=== PATIENT | female | born 1950 | race Caucasian/White ===

== ENCOUNTER 2017-02-07 09:58 | Day surgery (SDC) | payer BC, MEDICARE ==
[~2017-02-07] VITALS: Ht 160 cm; Wt 87.6 kg
[~2017-02-07 09:58] MED LIST: ASPI81TA84 PO; BUME1TAB16 PO; LEVO125T71 PO; LIDOCAINE 1% (10mg/ml) 2ml SDV INJ ONE; LR 1,000 ML IV SCH; METO25TA6 PO; MULT1CAP47 PO; OMEP20CA4 PO; ROSU20TA23 PO; SUCR1TAB20 PO; THYR15TA PO; TICA60TA PO
[2017-02-07 10:24] VITALS: BP 159/77; PULSE 68; RESP 16; TEMP 98.3; O2SAT 96; Ht 160 cm; Wt 87.6 kg
--- NOTE | 2017-02-07 11:41 | ANESPREOP ---
Anesthesia Record Date and Time DATE: 02/07/17 TIME: 11:35 Proposed Surgical Procedure EGD,COLONOSCOPY Allergies: Coded Allergies: Sulfa (Sulfonamide Antibiotics) (Verified Allergy, Unknown, 02/07/17) codeine (Verified Allergy, Unknown, 02/07/17) hydrocodone bit (Verified Allergy, Unknown, 02/07/17) Ht/Wt/BMI Height: 5 ' 3.00 " Weight: 87.600 kg BMI: 34.2 kg/m2 Vital Signs Date Time Temp Pulse Resp B/P Pulse Ox O2 Delivery O2 Flow Rate FiO2 02/07/17 10:24 98.3 68 16 159/77 96 Room Air Medications Inpatient Medications Current Medications Medications (Trade) Dose Ordered Sig/Ana Start Time Stop Time Status Last Admin Dose Admin Lactated Ringer's (Lactated Ringers) 1,000 ml @ 50 mls/hr Q20H 02/07/17 07:00 02/07/17 10:47 50 MLS/HR Aspirin (Nathan) 81 Mg Tablet.dr, 81 MG PO DAILY, (Reported) Last Taken: on 01/28/17 07 Bumetanide (Bumex) 1 Mg Tablet, 1 MG PO BID, ( Reported) Last Taken: on 02/06/17 07 Levothyroxine Sodium (Levothyroxine Sodium) 125 Mcg Tablet, 125 MCG PO DAILY, (Reported) Last Taken: on 02/07/17 07 Metoprolol Tartrate (Metoprolol Tartrate) 25 Mg Tablet, 25 MG PO BIDWM, (Reported) Take 1 tab, by mouth, two time a day with meals. Last Taken: on 02/07/17 0730 Multivitamins W-Minerals (Multivitamin) 1 Cap Capsule, 1 CAP PO DAILY, (Reported) Last Taken: on 02/06/17 07 Omeprazole (Prilosec) 20 Mg Capsule.dr, 20 MG PO ACB, (Reported) Take 1 capsule, by mouth, one time a day before breakfast. Last Taken: on 02/06/17 0700 Rosuvastatin Calcium (Rosuvastatin Calcium) 20 Mg Tablet, 1 TAB PO HS, (Reported) Last Taken: on 02/06/17 07 Sucralfate (Carafate) 1 Gm Tablet, 1 G PO ACHS, (Reported) Take 1 tablet, by mouth, 4 times a day (Before EACH meal and at BEDTIME). Last Taken: on 02/06/17 2200 Thyroid,Pork ([place] Thyroid) 15 Mg Tablet, 1 TAB PO DAILY, (Reported) Last Taken: on 02/07/17 0700 Ticagrelor (Brilinta) 60 Mg Tablet, 60 MG PO BID, (Reported) Last Taken: on 01/28/17 Currently on Beta Teri: Yes Beta Teri Last Taken: METOPROLOL 25MG 02/07 AT 0730 Medical/Surgical History Anesthesia PMH: Reports: *Hypertension, Arthritis (HX OF ), Obesity, Reflux, Thyroid Disease (HYPOTHYROID), Denies: *Angina, *Diabetes, *WA, Anesthesia Reactions (NO AIRWAY ISSUES HARD TO WAKE UP,N&V), Asthma, Blood Transfusion Reac , CHF, COPD, CVA/Stroke/TIA, Cancer, Deep Vein Thrombosis, Glaucoma, Hepatitis, Hiatal Hernia (HX OF UMBILICAL HERNIA), Malignant Hyperthermia, Pneumonia, Renal Disease, Rheumatic Fever, Seizures, Sleep Apnea, Tuberculosis Smoking Status: Never smoker Has pt. smoked today?: No Use Chewing Tobacco?: No Second Hand Exposure: No Substance Use Type: does not use Alcohol Intake: rarely Last Drink: unknown HX of Last Menstrual Period: AGE 31 Past Surgical History Orthopedic Surgeries: - THUMB JOINT FUSED; MISAEL CTR; REPAIRED TENDONS LT ELBOW; MISAEL KNEE SCOPES Abdominal Surgeries: - LAP/ ADHESIONS; GREG; APPY; UMB. HERNIA CHILD Genitourinary Surgeries: Cardiac Surgeries: Endocrine Surgeries: - THYROIDECTOMY Reproductive Surgeries: - TUBAL,HYST Neurological Surgeries: Ear Surgeries: Nose Surgeries: Throat Surgeries: Other Surgeries: Yes - DENTAL Anesthesia Adverse Reactions: FOUND nausea and vomiting Family Hx of Anesthesia Advers: none Hx of Motion Sickness: No Pertinent Findings EKG Rhythm: Sinus Rhythm Physical Exam Respiratory: Bilat breath sounds equal, Lungs clear Cardiovascular: FOUND Regular rate, rhythm, FOUND No murmur Airway Assessment Mallampati Score: II TMD: 3 Fingerbreadths Neck Extension: Fair Teeth: Upper Dentures, Lower Dentures Overall Assessment: No Airway Concerns ASA: 2 Plan Anesthesia Plan: TIVA Discussion Discussed risks/options/alternatives of anesthesia and questions answered. Patient consents. Nursing pain assessment noted. Present: Spouse Attestation Statement Prior to the delivery of any anesthetic medication, I examined the patient, developed the plan, obtained the patient's consent and discussed the risk and benefits of the procedure with the patient/guardian. CHARLEE PHELAN CRNA Feb 07, 2017 11:41
[2017-02-07] MEDS ORDERED: LIDOCAINE VISCOUS 2% Oral Soln 15ml UD ONE (12:25)
[2017-02-07] MEDS ORDERED: PROPOFOL 500mg 50 ML IV ONE (13:02)
[2017-02-07 13:16] VITALS: BP 136/63; PULSE 62; RESP 16; TEMP 97.1; O2SAT 98
--- NOTE | 2017-02-07 13:22 | GSPOSTPROC ---
Immediate Operative Note DATE: 02/07/17 TIME: 13:21 Postop Diagnosis: colon polyps Surgical Procedure: EGD, C-scope w/Polypectomy Surgeon: Moe ASA: 2 GEOVANNI GONZALEZ MD Feb 07, 2017 13:22
[2017-02-07 13:31] VITALS: BP 144/66; PULSE 59; RESP 16; O2SAT 97
--- NOTE | 2017-02-07 13:40 | ANESPO ---
Post-Op Note Date 02/07/17 Time: 13:40 Status Pt Participated in Evaluation: Pt participated in person Vital Signs Date Time Temp Pulse Resp B/P Pulse Ox O2 Delivery O2 Flow Rate FiO2 02/07/17 13:16 97.1 62 16 136/63 98 Mask 6.00 Respiratory Function: Airway patent, Regular respirations Cardiovascular Function: Regular pulse Mental Status: Alert/oriented Pain Level Intensity: 0 Hydration: Taking po fluids Complications during Recovery None apparent Follow-Up Instructions Instructions Per Surgeon JEAN CLAUDE ANTHONY CRNA Feb 07, 2017 13:40
[2017-02-07 13:46] VITALS: BP 179/72; PULSE 60; RESP 14; TEMP 97.3; O2SAT 100
[2017-02-07 14:01] VITALS: BP 159/70; PULSE 61; RESP 16; O2SAT 100
[2017-02-07 14:16] VITALS: BP 141/60; PULSE 59; RESP 16; O2SAT 100
--- NOTE | 2017-02-08 08:45 | OPNOTEF ---
DATE OF OPERATION 02/07/2017 PREOPERATIVE DIAGNOSES 1. Gastroesophageal reflux disease. 2. Rectal bleeding. 3. Chronic constipation with worsening constipation of several months' duration. 4. Internal and external hemorrhoids. 5. Irritable bowel syndrome. 6. Recent anticoagulation with Brilinta. POSTOPERATIVE DIAGNOSES 1. Gastroesophageal reflux disease. 2. Rectal bleeding. 3. Chronic constipation with worsening constipation of several months' duration. 4. Internal and external hemorrhoids. 5. Irritable bowel syndrome. 6. Recent anticoagulation with Brilinta. 7. Colon polyps. OPERATION Esophagogastroduodenoscopy and total colonoscopy with polypectomy. SURGEON Dr. Rosa ANESTHESIA TINV ASA CLASS 2 FINDINGS The findings at the upper gastrointestinal tract were normal at esophagogastroduodenoscopy. The esophagus, stomach and duodenum looked normal. No source for bleeding which would lead to rectal bleeding was found at esophagogastroduodenoscopy. The esophagus appeared normal. There was no distal esophagitis. There were no he esophageal ulcerations or erosions. There were no Valderrama's esophagus changes at the esophagus. There were no colon or rectal tumors. The patient did have three colon polyps. The patient had a small polyp located 65 cm proximal to the anal verge. The patient had a larger polyp located at the ascending colon. The patient had another smaller polyp at the ascending colon. There were no rectal polyps. There was no colonic diverticulosis. There was no melanosis coli. There were no colonic angiodysplasia lesions. There was no evidence of any inflammatory bowel disease. The patient does have some internal and external hemorrhoids. There was no colonic diverticulosis. No bright red blood or old blood was seen anywhere at the colon or rectum at the time of the procedure today. It was thought at the conclusion of the operation today that the hematochezia experienced by the patient is due to bleeding from internal hemorrhoids. No cause for the worsening constipation was found today. There were no narrow areas or strictures anywhere at the colon. The patient did not have any anal fissures. DESCRIPTION OF OPERATION The patient was brought to the endoscopy room. The patient was placed on a cart in the endoscopy room. The patient was placed in left lateral recumbent position on the cart. The patient was premedicated with intravenous sedation medication administered by the nurse senior solutions workflow consultant. The Olympus upper GI endoscope was used. The upper GI endoscope was introduced into the esophagus. The upper GI endoscope was advanced down through the esophagus and stomach and into the duodenum. The upper GI endoscope was then withdrawn from the duodenum back into stomach. The upper GI endoscope was retroflexed and the gastroesophageal junction was viewed from below. The upper GI endoscope was straightened out. The stomach was examined further. The upper GI endoscope was then withdrawn out through the stomach and esophagus and removed from the patient. The patient was kept in left lateral recumbent position on the cart in the endoscopy room. The patient continued to receive intravenous sedation medication administered by the nurse senior solutions workflow consultant. Total colonoscopy was performed. The Olympus colonoscope was used. The colonoscope was introduced into the rectum. The colonoscope was advanced up through the rectum and colon. As the colonoscope was being introduced, a polyp was identified at a level 65 cm proximal to the anal verge. This polyp was removed with two bites of the cold endoscopic biopsy forceps and submitted as a specimen for study by a pathologist. The colonoscope was then advanced the remainder of the way up through the colon all the way up to the cecum. The appendiceal orifice was clearly identified. The ileocecal valve was clearly identified. The colonoscope was withdrawn back through the colon. The patient did have a couple of ascending colon polyps. One these polyps was removed with the electrocautery snare device and retrieved and submitted as a specimen for study by a pathologist. The other of ascending colon polyp was removed with the cold endoscopic biopsy forceps and submitted as a specimen for study by the pathologist. The colonoscope was then withdrawn the remainder of the way out through the colon and rectum and removed from the patient. Digital rectal examination was performed. Findings throughout the procedure were as described above. The patient did continue to receive intravenous sedation medication administered by the nurse senior solutions workflow consultant throughout the operation. The patient did tolerate the operation well. BHAVANI
== END 2017-02-07 14:30 | disposition home or self-care (01) ==
LOC: SCU 09:58
PROVIDERS: ATTEND Surgery
DX: K21.9 Gastro-esophageal reflux disease without esophagitis (principal); D12.2 Benign neoplasm of ascending colon; D12.6 Benign neoplasm of colon, unspecified; K62.5 Hemorrhage of anus and rectum; K58.1 Irritable bowel syndrome with constipation; K64.8 Other hemorrhoids; K64.4 Residual hemorrhoidal skin tags; Z83.71 Family history of colonic polyps; E03.9 Hypothyroidism, unspecified; I25.10 Atherosclerotic heart disease of native coronary artery without angina pectoris; I34.0 Nonrheumatic mitral (valve) insufficiency; E78.5 Hyperlipidemia, unspecified; F41.9 Anxiety disorder, unspecified; F32.9 Major depressive disorder, single episode, unspecified; Z79.01 Long term (current) use of anticoagulants; Z79.82 Long term (current) use of aspirin; Z79.899 Other long term (current) drug therapy
CPT/HCPCS: 43235; 45380; 45385; J2704; J7120

== ENCOUNTER 2017-05-11 08:12 | Inpatient (IN) ==
[~2017-05-11 08:12] MED LIST changes: +ACETAMINOPHEN 500 MG TABLET PO ONE; -ASPI81TA84 PO; -BUME1TAB16 PO; +CEFAZOLIN 1 G INJECTION IVP ONE; +DEXAMETHASONE 4 MG/ML INJECTION IVP ONE; +EPINEPHrine 0.25 MG, BUPIVACAINE 0.25% PF 30 ML, MORPHINE SULFATE 15 MG, KETOROLAC INJ ... OPSITE ONE; +FAMOTIDINE PREMIX 20 MG/50 ML BAG IV ONE; -LEVO125T71 PO; +LIDOCAINE 1% (10mg/ml) 10mL MDV SQ ONE; -LIDOCAINE 1% (10mg/ml) 2ml SDV INJ ONE; -LR 1,000 ML IV SCH; +MELOXICAM 15 MG TABLET PO ONE; -METO25TA6 PO; +METOCLOPRAMIDE 10mg/2ml INJECTION IVP ONE; -MULT1CAP47 PO; +NOZIN NASAL SWAB NAS ONE; -OMEP20CA4 PO; +ONDANSETRON 4 MG/2 ML INJECTION IVP ONE; -ROSU20TA23 PO; +SALINE FLUSH 10ml SYRINGE IVF PRN; -SUCR1TAB20 PO; -THYR15TA PO; -TICA60TA PO
[2017-05-11] MEDS: LR 1,000 ML IV SCH ×2 (08:57→13:25)
[2017-05-11] MEDS ORDERED: VANCOMYCIN 1,000 MG INJECTION ONE (09:52)
--- NOTE | 2017-05-11 10:00 | Anesthesia Preoperative Report ---
Anesthesia Preoperative Record - Date and Time Date: 05/11/17 Preoperative Diagnosis: Total knee arthroplasty M17.12 Proposed Procedure: Left Total Knee replacement NPO Since Date: 05/11/17 NPO Since Time: 00:00 Allergies/Adverse Reactions: Allergies Allergy/AdvReac Type Severity Reaction Status Date / Time codeine AdvReac Unknown N/V Verified 05/11/17 08:40 Sulfa (Sulfonamide AdvReac Unknown N/V Verified 05/11/17 08:40 Antibiotics) hydrocodone bit AdvReac Unknown N/V Uncoded 05/11/17 08:40 - Vital Signs Vital Signs: Temp Pulse Resp BP Pulse Ox 98.4 F 62 15 159/75 H 96 05/11/17 08:27 05/11/17 08:55 05/11/17 08:27 05/11/17 08:27 05/11/17 08:27 Height and Weight: Height 5 ft 3 in Weight 92.6 kg Body Mass Index 36.1 - Medications Inpatient Medications: Current Medications Lactated Ringer's (Lactated Ringers) 1,000 mls @ 50 mls/hr IV .Q20H SWAPNIL Last Admin: 05/11/17 08:57 Dose: 50 mls/hr Miscellaneous Medication (Tranexamic 1gm/Ns 100 Irr Mix) 100 ml IR O ONE Stop: 05/11/17 15:02 Sodium Chloride (Iv Flush) 10 - 80 ml IVF PRN PRN PRN Reason: Flushing Home Medications: Home Medications Medication Instructions Recorded Confirmed Type Bumetanide 1 mg PO BID #0 05/19/11 05/11/17 History Levothyroxine Sodium [Synthroid] 125 mcg PO DAILY #0 05/19/11 05/11/17 History Sucralfate [Carafate] 1 g PO ACHS #0 tab 08/24/15 05/11/17 History Metoprolol Tartrate 25 mg PO BID #0 tab 10/27/15 05/11/17 History Rosuvastatin Calcium 1 tab PO HS #30 02/06/17 05/11/17 History Thyroid,Pork [[place] Thyroid] 1 tab PO DAILY #30 02/06/17 05/11/17 History Ticagrelor [Brilinta] 60 mg PO BID #0 tab 02/06/17 05/10/17 History Aspirin [Lo-Dose Aspirin EC] 1 tab PO HS 05/03/17 05/10/17 History Multivit-Min/FA/Lycopen/Lutein 1 each PO DAILY 05/03/17 05/11/17 History [Centrum Silver Tablet] Lisinopril [Prinivil] 5 mg PO DAILY 05/05/17 05/11/17 History Omeprazole [Prilosec] 1 cap PO DAILY 05/11/17 05/11/17 History Is Patient on Beta Teri?: Yes - Medical History Respiratory: DENIES: Asthma, Bronchitis, Chronic Obstructive Pulmonary Disease (COPD), Dyspnea, Orthopnea, Pulmonary Embolism, Pneumonia, Upper Respiratory Infection, Pulmonary Edema, Sleep Apnea, Tuberculosis, Other Cardiovascular: Reports: Myocardial Infarction (stentx1) Gastrointestional: Reports: Gastroesophageal Reflux Disease (well controlled with meds.) Neuro/Musculoskeletal: Denies: HX.MS.OSAR, Back Problems, Cerebrovascular Accident, Depression, Headaches, Loss of Consciousness, Muscle Weakness, Neuromuscular Disorder, Paralysis, Paresthesia, Syncope, Seizures, Other Renal/Endocrine: Reports: Thyroid Disease (Total Thyroidectomy) Other History: Reports: Anesthesia Reactions (PONV) Anesthesia Reactions: nausea and vomiting - Surgical History HEENT Surgeries: Reports: Tonsillectomy Cardiac Surgeries/Treatments: Reports: Cardiac Catheterization (Stent x1-2015) Endocrine Surgery/Treatments: Reports: Thyroidectomy GI Surgery/Treatments: Reports: Appendectomy, Cholecystectomy, Hernia Repair ( Umbilical), Colonoscopy (polyp), EGD, Other (expl lap, release of adhesions) Musculoskeletal Surgery/Tx: Reports: Carpal Tunnel Release (bilateral), Knee Arthroscopy (Bilateral), Orthopedic Surgery (thumb joint;lt elbow tendon repair) , Other ([place] surg lt knee age 8) Reproductive Surgery/Treatment: Reports: Dilation and Curettage, Hysterectomy, Oophorectomy, Tubal Ligation, Salpingectomy Hx Family Anesthesia Reaction: No - Social History Smoking Status: Never smoker Substance Use Type: does not use - Pertinent Findings EKG Rhythm: Normal Sinus Rhythm - Physical Exam Respiratory Exam: Present: lungs clear, bilateral breath sounds equal Cardiovascular Exam: Present: regular rate and rhythm, no murmur - Airway Assessment Mallampati Score: II TMD: 3 Fingerbreadths Neck Extension: good Teeth: upper dentures, lower dentures - ASA ASA Score: 2 - Plan Anesthesia: General TIVA Regional/Trunk Block: Spinal - Discussion Discussion: Discussed risks/options/alternatives of anesthesia and questions answered. Patient consents. Nursing pain assessment noted. Present for Discussion: family member Attestation Statement: Prior to the delivery of any anesthetic medication, I examined the patient, developed the plan, obtained the patient's consent and discussed the risk and benefits of the procedure with the patient/guardian. - Additional Information Seen by Anesthesia: Yes
[2017-05-11] MEDS ORDERED: PROPOFOL 500 MG/50 ML VIAL IV ONE (10:50)
[2017-05-11] MEDS ORDERED: PROPOFOL 80 ML ONE (11:43)
[2017-05-11] MEDS ORDERED: VANCOMYCIN 1,000 MG INJECTION IAR ONE (11:53)
--- NOTE | 2017-05-11 12:07 | Operative Note ---
- Procedure Date of Admission: 05/11/17 Side: left Preoperative Diagnosis: knee primary DJD Postoperative Diagnosis: Same as preoperative diagnosis. Operation: total knee arthroplasty (left) Surgeon: Mansi Howell MD Health Care Sanitary Technician: SHAYY Castaneda Complications: None. Peripheral Nerve Block: Saphenous-Left Estimated Blood Loss: See Anesthesia Record. Fluids: Please see Anesthesia Record. Description of Procedure: Mrs. Amaral and the left knee were identified and marked in the preoperative holding area. She was brought back to the operating suite and placed supine on the operating table. Spinal anesthetic was administered. The operative lower extremity was prepped and draped in a sterile fashion. Timeout was performed. Mrs. 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 An anterior midline incision using previous anterior incision followed by sub-vastus approach was utilized. This was done in order to save any previous medial plication was performed. The tourniquet was not used until cementing. Hemostasis was obtained with electrocautery. The patella was resurfaced to a size 29. A distal femoral osteotomy was then performed in 5 of valgus using intramedullary guide. The femur was sized at a 4 and rotation set using the epicondylar axis. Distal femoral cuts were performed with a 4-in-1 cutting block. A proximal tibial cut was then made perpendicular to its long axis using an extramedullary guide. At this point remaining meniscus and osteophytes were removed and joint cocktail was injected throughout soft tissue. Trial components were placed with a 9 mm spacer. This allowed for full extension and flexion and the patella tracked well. She was a little tight medially and a larger medial release was performed. Her IT band laterally was also tight and was released. The PCL was checked and was not tight. The leg was then exsanguinated and the tourniquet inflated to 250 mmHg. The tibia was then stamped at a size 3 at the proper rotation. The bone was then prepared for cementing and [place] Triathalon components were cemented into place and allowed to cure in extension. The tourniquet was then let down and hemostasis obtained with electrocautery. Betadine solution was used during the curing period for 3 minutes. 1 g of vancomycin powder was placed into the joint before the capsulotomy was repaired with #1 Vicryl. I then left my web marketing assistant close the subcutaneous tissue and skin with 2-0 Vicryl and Monocryl. Dermabond was used on the skin. 1 g of TXA was allowed to sit in the wound for 5 minutes and then suctioned out.The drapes were then removed and she was taken to recovery room under the care of anesthesia.
[2017-05-11] MEDS ORDERED: PROPOFOL 20 ML ONE (12:11)
--- NOTE | 2017-05-11 12:26 | History & Physical Update ---
- History and Physical Update Date: 05/11/17 Update: I evaluated this patient and found no changes in the history and clinical exam findings. The treatment plan and recommendations are also unchanged from the previous documentation.
[2017-05-11] MEDS ORDERED: ROPIVACAINE 0.5% (5mg/ml) 30ml INJ ONE (12:30)
--- NOTE | 2017-05-11 13:20 | XRay Report ---
Indication: postoperative image left knee replacement PROCEDURE: XR knee LT 2V: Encounter: Initial Comparison: May 03, 2017 Findings: Postoperative changes of left total knee replacement are seen. There is expected postoperative subcutaneous gas. No evidence of hardware failure or acute fracture. No retained radiopaque surgical instruments or sponges. Overlying material causing artifact. Impression: New left total knee prosthesis without evidence of immediate complication. .
--- NOTE | 2017-05-11 13:44 | Anesthesia Procedure Note ---
Peripheral Nerve Blockade - Procedure Physician: Lc Howell MD Date: 05/11/17 Surgical Procedure: Left Total Knee Replacement Discussion: Discussed risks/options/alternatives of anesthesia and questions answered. Patient consents. Nursing pain assessment noted. Block Start: 12:45 Block Stop: 12:48 Blocked Employed: Adductor Canal Indication: Post-Operative Pain Approach: Left Side Confirmed Position: Supine Patient: Consent, Risks/Benefits Discussed, Informed, Post Block Act. Discussed IV Sedation: No Sedation: Awake Initial Vital Signs: Temperature 98.4 F 05/11/17 08:27 Temperature Source Oral 05/11/17 08:27 Pulse Rate 67 05/11/17 08:27 Respiratory Rate 15 05/11/17 08:27 Blood Pressure 159/75 H 05/11/17 08:27 Blood Pressure Mean 103 05/11/17 08:27 Blood Pressure Position Sitting 05/11/17 08:27 Pulse Oximetry 96 05/11/17 08:27 Oxygen Delivery Method 05/11/17 08:27 Post Vital Signs: Temp Pulse Resp BP Pulse Ox 97.4 F 67 20 123/57 99 05/11/17 12:35 05/11/17 13:30 05/11/17 13:30 05/11/17 13:30 05/11/17 13:30 Initial Pain Pain Score: 9 Post Block Pain Score: 7 Prep: Chlorhexadine/ETOH Ultrasound Used?: Yes - Injectate Ropivacaine (%): 0.5 Ropivacaine (mL): 25 Was Epi 1:200,000 Used?: No Injection: Injection made incrementally with constant monitoring and aspiration every ml
--- NOTE | 2017-05-11 13:45 | Anesthesia Postoperative Note ---
- Date and Time Date: 05/11/17 Time: 13:39 - Status Patient Participated in Evaluation: Patient Participated in Person Vital Signs: Temp Pulse Resp BP Pulse Ox 97.4 F 67 20 123/57 99 05/11/17 12:35 05/11/17 13:30 05/11/17 13:30 05/11/17 13:30 05/11/17 13:30 Respiratory Function: Airway Patent, Regular Respirations Cardiovascular Function: Regular Pulse EKG Rhythm: Sinus Bradycardia Mental Status: Lethargic Pain Intensity: 0 Hydration: IV Infusing Complications During Recover: None Apparent Post Anesthesia Care Notes: Called to PACU where pt experienced sudden onset of diaphoresis, bradycardia, chest tightness and hypotension. I placed pt in trendelenberg position. Ephedrine 10 mg given. Rapid response team called. Hospitalist consulted. EKG stat ordered. Pt BP and HR came up after ephedrine. Pt talking but lethargic. Probable Vaso vagal reaction. Care resumed by Dr Magana. Dr Howell here also. Transferring to CCU. Cardiac workup started. Pt is stable in PACU now. - Follow-Up Instructions Instructions: Per Surgeon
[2017-05-11] MEDS ORDERED: DiphenhydrAMINE 50 MG/ML INJECTION IVP PRN (14:13)
[2017-05-11] MEDS ORDERED: ONDANSETRON 4 MG/2 ML INJECTION IVP PRN (14:13)
[2017-05-11] MEDS ORDERED: NOZIN NASAL SWAB NAS ONE (14:13)
[2017-05-11] MEDS ORDERED: DiphenhydrAMINE 25 MG CAPSULE PO PRN (14:13)
[2017-05-11] MEDS: NS 1,000 ML IV SCH (14:27)
[2017-05-11] MEDS ORDERED: Pharmacy Consult for Fall Risk MC PRN (14:49)
[2017-05-11] MEDS ORDERED: TRANEXAMIC ACID 1gm/NS 100ml IRR MIX IR ONE (15:01)
[2017-05-11] MEDS: ACETAMINOPHEN 325 MG TABLET PO SCH ×4 (15:18→22:35)
[2017-05-11] MEDS: TRAMADOL 50 MG TABLET PO PRN ×2 (15:19→19:31)
[2017-05-11] MEDS: BUMETANIDE 1 MG TABLET PO SCH (15:20)
[2017-05-11] MEDS: NOZIN NASAL SWAB NAS SCH ×2 (15:21→21:04)
[2017-05-11] MEDS ORDERED: SALINE FLUSH 10ml SYRINGE ONE (16:05)
[2017-05-11] MEDS ORDERED: NS 100 ML ONE (16:05)
[2017-05-11] MEDS ORDERED: IOHEXOL 350mg/ml 75ml INJECTION ONE (16:05)
--- NOTE | 2017-05-11 17:00 | CT Scan Report ---
Indication: R/O PE episode of hypotension and chest pain after surgery PROCEDURE: CT angio pulm emboli: Encounter: Initial Comparison: Chest x-ray dated April 26, 2017 Technique: Axial CT pulmonary angiographic phase images were performed through the chest after the administration of intravenous contrast. Coronal and Sagittal MIP reconstructed images were created and reviewed. Automated Exposure Control and Iterative Reconstruction dose reducing techniques were utilized. Contrast: Omnipaque 350 60 mL Findings: Pulmonary arteries: Exam is diagnostic to the subsegmental pulmonary arterial level. No filling defects identified to suggest a pulmonary embolus. Other findings: No pneumothorax. Mild right lower lobe atelectasis. Trace left basilar atelectasis. No pleural effusion. The central airways are patent. No worrisome pulmonary nodules or masses. No axillary or mediastinal adenopathy. Heart size is normal. No pericardial effusion. The upper abdomen shows no acute findings. Bone windows are unremarkable for age. Impression: 1. No pulmonary embolus. 2. Small areas of bibasilar atelectasis. .
[2017-05-11] MEDS: CEFAZOLIN 2 G in NS 100 ML IV SCH (17:35)
[2017-05-11] MEDS: SUCRALFATE 1 GM TABLET PO SCH ×2 (17:36→21:00)
--- NOTE | 2017-05-11 18:25 | History & Physical Report ---
History of Present Illness Date: 05/11/17 HPI: This is a patient that we saw on a rapid response call earlier today for an episode of hypotension, bradycardia, diaphoresis and chest pain shortly after knee surgery. When seen initially pt speech was slurred (Probably due to anesthesia). She was able to articulate that she had, in the past several similar episodes. Case was discussed with her family, they stated pt had a recent cardiac cath and that she was taking BP meds. Pt was routed to the ICU. Initial blood work showed a negative TnI, her d-dimer was high. Once pt woke up she appeared to be comfortable and coherent. No apparent neurologic deficits were found. She stated she had similar episodes in the past but she had not experienced chest pain or shortness of breath with the near syncope episodes. EKG done at the ED did not show any ST elevation or depression, minor non pathologic Q waves were seen in I,II, III. Due to the presence of SOB and CP pt had a CTA chest that did not show a PE. PT will be observed overnight in the ICU with 2 more Troponins ordered. Review of Systems ROS unobtainable: due to mental status PFSH Patient Stated Medical History Cerebrovascular Accident No Paralysis No Seizures No Syncope No Cardiac Arrhythmia Yes Coronary Artery Disease Yes Hypertension Yes Myocardial Infarction Yes: stentx1 Valvular Heart Disease Yes: mild MVP Other Cardiology Yes: Ablation of extra node 1995 Asthma No Bronchitis No Chronic Obstructive Pulmonary No Disease (COPD) Pneumonia No Pulmonary Edema No Pulmonary Embolism No Sleep Apnea No Tuberculosis No Other Respiratory No Gastroesophageal Reflux Yes: well controlled with meds. Disease Ulcer Yes Other GI Yes: IBS Osteoarthritis No Other Musculoskeletal No Anesthesia Reactions Yes: PONV Depression No Uterine Prolapse Yes Clinic Medical History (Last Updated 05/05/17 @ 13:23 by Steff Torres) A-fib (Acute Medical) Asthma (Acute Medical) Cardiac abnormality (Acute Medical) GERD (gastroesophageal reflux disease) (Acute Medical) HTN (hypertension) (Acute Medical) Rheumatoid arthritis (Acute Medical) Stomach ulcer (Acute Medical) Thyroid disease (Acute Medical) Surgical History: Cholecystectomy, thyroidectomy Family History: Family History (Last Reviewed 05/03/17 @ 14:06 by Lc Howell MD) Father Heart attack Lung cancer Mother Lung cancer - Social History Smoking status: Never smoker Substance use type: does not use Medications Home Medications Medication Instructions Recorded Confirmed Type Bumetanide 1 mg PO BID #0 05/19/11 05/11/17 History Levothyroxine Sodium [Synthroid] 125 mcg PO DAILY #0 05/19/11 05/11/17 History Sucralfate [Carafate] 1 g PO ACHS #0 tab 08/24/15 05/11/17 History Metoprolol Tartrate 25 mg PO BID #0 tab 10/27/15 05/11/17 History Rosuvastatin Calcium 1 tab PO HS #30 02/06/17 05/11/17 History Thyroid,Pork [Chunky Thyroid] 1 tab PO DAILY #30 02/06/17 05/11/17 History Ticagrelor [Brilinta] 60 mg PO BID #0 tab 02/06/17 05/10/17 History Aspirin [Lo-Dose Aspirin EC] 1 tab PO HS 05/03/17 05/10/17 History Multivit-Min/FA/Lycopen/Lutein 1 each PO DAILY 05/03/17 05/11/17 History [Centrum Silver Tablet] Lisinopril [Prinivil] 5 mg PO DAILY 05/05/17 05/11/17 History Omeprazole [Prilosec] 1 cap PO DAILY 05/11/17 05/11/17 History Allergies Allergy/AdvReac Type Severity Reaction Status Date / Time codeine AdvReac Unknown N/V Verified 05/11/17 08:40 Sulfa (Sulfonamide AdvReac Unknown N/V Verified 05/11/17 08:40 Antibiotics) hydrocodone bit AdvReac Unknown N/V Uncoded 05/11/17 08:40 Exam Vital Signs: Temp Pulse Resp BP Pulse Ox 98.8 F 77 14 114/57 99 05/11/17 14:40 05/11/17 16:57 05/11/17 16:57 05/11/17 15:45 05/11/17 16:57 Telemetry Rhythm: Sinus Rhythm Height: 5 ft 3 in Weight: 92.6 kg Body Mass Index: 36.1 - Constitutional Present: no acute distress - Routine HEENT Exam Head: Present: normocephalic, atraumatic Eye: Present: EOMI, PERRL - Routine Neck Exam Present: supple, JVD - Routine Respiratory Exam Present: CTA bilaterally - Routine Cardiovascular Exam Present: RRR - Routine Abdominal Exam Present: soft, non distended, non tender - Routine Extremities Exam Absent: cyanosis, clubbing, edema - Routine Neurological Exam Present: alert, oriented X3, CN II-XII intact - Routine Psychiatric Exam Present: normal affect, cooperative Results - Labs CBC & Chem 7: 05/11/17 13:41 05/11/17 13:41 Assessment and Plan Assessment and Plan: This is a 66YO female that is S/P total knee replacement by staff orthopedic surgeon (Dr Howell) today, that had an episode of SOB, hypotension and CP. CT did not show a PE. WIll continue close observation to R/O [place]. 1) S/P Total knee replacement (Today) 2) Episode of CP, SOB and hypotension after surgery ? of vasovagal episode ? - Pt was on BB + ACEI at home, will continue - Continue observation at the ICU - Check 2 more TnI. EKG was negative. - If stable in the AM may transfer to the floor. 3) Hypothyroidism - Home meds list Levothyroxine and Chunky thyroid, but pt is only on Chunky thyroid at this time. - ? due to graves ? since she had a thyroidectomy ? 4) Pt had a cardiac cath during the last year and was not found to have significant disease. - Resume Ticagrelor - Close observation in the ICU. Sepsis Assessment - Evaluation Sepsis screening result: No Definite Risk Hospital Course Summary Disclaimer: The visit summary below is not to be considered part of the above Progress Note.
[2017-05-11] MEDS: KETOROLAC 30 MG/ML INJECTION IVP PRN (20:48)
[2017-05-11] MEDS: TICAGRELOR 60 MG TABLET PO SCH (20:57)
[2017-05-11] MEDS: DOCUSATE SODIUM 100 MG CAPSULE PO SCH (20:58)
[2017-05-11] MEDS: ASPIRIN *EC* 81 MG TABLET PO SCH (21:00)
[2017-05-11] MEDS: ROSUVASTATIN 20 MG TABLET PO SCH (21:00)
[2017-05-11] MEDS: SENNOSIDES 8.6 MG TABLET PO SCH (21:09)
[2017-05-12] MEDS: TRAMADOL 50 MG TABLET PO PRN ×5 (00:02→18:32)
[2017-05-12] MEDS: LORazepam 1 MG TABLET PO PRN (01:07)
[2017-05-12] MEDS: ACETAMINOPHEN 325 MG TABLET PO SCH ×5 (01:26→21:22)
[2017-05-12] MEDS: CEFAZOLIN 2 G in NS 100 ML IV SCH (02:24)
[2017-05-12] MEDS: NS 1,000 ML IV SCH ×2 (04:08→17:16)
[2017-05-12] MEDS: SUCRALFATE 1 GM TABLET PO SCH ×4 (05:53→21:22)
[2017-05-12] MEDS: LEVOTHYROXINE 125 MCG TABLET PO SCH (05:53)
[2017-05-12] MEDS: NOZIN NASAL SWAB NAS SCH ×3 (05:53→21:24)
--- NOTE | 2017-05-12 08:04 | Orthopedic Progress Note ---
Date: Subjective/Severity of Illness: Pita is doing well this AM Denies much knee pain. Has no SOA, CP or cough. Troponins have been normal. BPs improved from yesterday. CTA was negative for PE. I expect her to be transferred to the floor later today. Orthopedic Objective PO Vital signs: Temp Pulse Resp BP Pulse Ox 97.7 F 67 21 121/56 95 05/12/17 04:00 05/12/17 07:00 05/12/17 07:00 05/12/17 07:00 05/12/17 07:00 Height and Weight: Height 5 ft 3 in Weight 204 lb 2.369 oz Body Mass Index 36.1 - Constitutional General Appearance: Present: alert, no acute distress - Respiratory Exam Present: non-labored (On a little oxygen this AM. ) - Cardiovascular Exam Present: pedal pulses intact - Surgical Site Incision: Mepilex dressing intact, dressing intact - Neurological Exam Present: no deficits - Psychiatric Exam Present: alert, normal affect - Labs Result Diagrams: 05/12/17 04:46 05/12/17 04:46 Abnormal lab results 05/11/17 05/11/17 05/11/17 Range/Units 13:41 13:41 14:31 WBC (4.5-11.0) T/MM3 RBC 3.83 L (4.00-5.20) M/MM3 Hgb 11.1 L (12-16) GM/DL Hct 35.6 L (36-46) % Neut % (Auto) 84.7 H (33-66) % Lymph % (Auto) 13.8 L (23-45) % Neut # (1.8-7.7) T/MM3 White # (0-0.8) T/MM3 D-Dimer 6440 H (0-230) NG/ML Sodium 145 H (134-144) MEQ/L Chloride 109 H (98-107) MEQ/L BUN 18.0 H (7-17) MG/DL Creatinine 0.6 L (0.7-1.2) MG/DL BUN/Creatinine Ratio 30 H (6-26) RATIO Glucose 131 H (65-110) MG/DL Calculated Osmolality 283 H (261-280) MOSM/KG Calcium 8.2 L (8.4-10.2) MG/DL Total Protein (6.3-8.2) G/DL Albumin (3.5-5.0) G/DL Globulin (2.4-3.6) G/DL Specimen Hemolysis (0-25) 05/11/17 05/12/17 05/12/17 Range/Units 23:56 04:46 04:46 WBC 12.6 H D (4.5-11.0) T/MM3 RBC 3.39 L (4.00-5.20) M/MM3 Hgb 9.9 L (12-16) GM/DL Hct 31.4 L D (36-46) % Neut % (Auto) 76.9 H (33-66) % Lymph % (Auto) 15.6 L (23-45) % Neut # 9.7 H (1.8-7.7) T/MM3 White # 0.9 H (0-0.8) T/MM3 D-Dimer (0-230) NG/ML Sodium 145 H (134-144) MEQ/L Chloride 108 H (98-107) MEQ/L BUN (7-17) MG/DL Creatinine 0.5 L (0.7-1.2) MG/DL BUN/Creatinine Ratio (6-26) RATIO Glucose (65-110) MG/DL Calculated Osmolality (261-280) MOSM/KG Calcium 7.7 L (8.4-10.2) MG/DL Total Protein 5.5 L (6.3-8.2) G/DL Albumin 3.3 L (3.5-5.0) G/DL Globulin 2.2 L (2.4-3.6) G/DL Specimen Hemolysis 27 H (0-25) H & H 05/11/17 05/12/17 Range/Units 13:41 04:46 Hgb 11.1 L 9.9 L (12-16) GM/DL Hct 35.6 L 31.4 L D (36-46) % Orthopedic Assessment and Plan (1) Arthritis of knee, left Status: Acute Assessment and Plan: Anticipate txfr to the surgical floor later today. Expect another day in the hospital to improve mobility and monitor VS. Current anti-coagulation protocol for VTE prophylaxis. SCD's and mobilization for added DVT coverage. PT/OT services to improve independent function. Discharge Planning per Case Management. Hospital Course Summary Disclaimer: The visit summary below is not to be considered part of the above Progress Note.
--- NOTE | 2017-05-12 09:09 | Progress Note ---
Subjective: Pt apparently had a good night. No arrythmias reported. This AM PT came to see her. While trying to ambulate her, she again became diaphoretic, pale and her HR dropped to the 40's. Pt reported feeling tingly. Now back in bed, HR is in the 70's. SBP is 100. Remains pale. Informed about lab results. Objective Vital signs: Temp Pulse Resp BP Pulse Ox 97.7 F 67 21 121/56 95 05/12/17 04:00 05/12/17 07:00 05/12/17 07:00 05/12/17 07:00 05/12/17 07:00 Rhythm: Normal Sinus Rhythm Body Mass Index: 36.1 - Constitutional Present: mild distress - Routine HEENT Exam Head: Present: normocephalic, atraumatic Eye: Present: EOMI, PERRL - Routine Cardiovascular Exam Present: RRR, no murmur - Routine Abdominal Exam Present: soft, non distended, non tender - Routine Extremities Exam Absent: cyanosis, clubbing, edema Comments: RLE exam - knee is covered with "polar pack" - Routine Neurological Exam Present: alert Results - Labs CBC & Chem 7: 05/12/17 04:46 05/12/17 04:46 Assessment and Plan Assessment and Plan: This is a 66YO female that is S/P total knee replacement by staff orthopedic surgeon (Dr Howell) today, that had an episode of SOB, hypotension and CP. CT did not show a PE. WIll continue close observation to R/O [place]. 1) S/P Total knee replacement (05/11) by Dr Howell. - Pt developed episode of CP, SOB and hypotension after surgery - could be vasovagal episode since pt describes similar episodes in the past, particularly related to surgical procedures. Pt had another episode this AM when PT was trying to ambulate her. - Initial EKG showed no ST elevation, depression or Q waves. - TnI is negative x 3. CTA negative for PE. (D-Dimer elevation probably due to surgery and/or tranexamic acid) - Will reduce Metoprolol dose from 25 mg POBID to 12.5 mg PO BID starting this PM - Continue observation at the ICU, may benefit from Cardiology input. 3) Hypothyroidism - S/P thyroidectomy (? graves ?) - Home meds list Levothyroxine and Sapphire thyroid, but pt is only on Sapphire thyroid at this time. 4) Pt had a cardiac cath during the last year and was not found to have significant disease. - Resume Ticagrelor - Close observation in the ICU. 5) Anemia, with hemoglobin of 11.1 yesterday now down to 9.9. Will recheck this PM. Sepsis Assessment - Evaluation Sepsis screening result: No Definite Risk Confirmed Suspected Infection: Yes Hospital Course Summary Disclaimer: The visit summary below is not to be considered part of the above Progress Note.
[2017-05-12] MEDS: DOCUSATE SODIUM 100 MG CAPSULE PO SCH ×2 (09:57→21:22)
[2017-05-12] MEDS: TICAGRELOR 60 MG TABLET PO SCH ×2 (09:59→21:22)
[2017-05-12] MEDS: KETOROLAC 30 MG/ML INJECTION IVP PRN ×3 (10:00→21:35)
[2017-05-12] MEDS: POLYETHYL GLYCOL 3350 17gm PACKET PO SCH (10:03)
--- NOTE | 2017-05-12 10:03 | Cardiology Consult Note ---
History of Present Illness Consult date: 05/12/17 <Natalie Rodriguez M - 05/12/17 10:48> Requesting physician: Bang Magana <Natalie Rodriguez M - 05/12/17 10:48> Chief complaint: near syncope <MichaelNatalie sheehan M - 05/12/17 10:48> History of present illness: Pita is a 66 year old female who is well known to Dr. Fagan with a history of CAD with stent to the LAD in 10/2015, HTN and HLD. She was last seen by Dr. Fagan on 05/03/17 for surgical clearance for her knee replacement surgery which she underwent yesterday. Following, a rapid response was called for an episode of hypotension, bradycardia, diaphoresis and chest pain shortly after her surgery. She reports that she had, in the past several similar episodes. Initial blood work showed a negative Troponin I, her d -dimer was high. Due to the presence of SOB and CP pt had a CTA chest that did not show a PE. She was transferred to CCU with 2 more Troponins ordered. This morning when getting up with PT she again became diaphoretic, pale and her HR dropped to the 40's. She reported feeling tingly. Dr. Fagan is being consulted for near syncope. She is seen in her room in the CCU this morning. She is alert and oriented. She denies chest pain or pressure, feeling palpitations, dyspnea, dizziness or lightheadedness. She denies recent illness, fever, chills, cough, sore throat, N /V/D, or dysuria. <Natalie Rodriguez M - 05/12/17 10:48> [facility] Patient Stated Medical History Cerebrovascular Accident No Paralysis No Seizures No Syncope No Cardiac Arrhythmia Yes Coronary Artery Disease Yes Hypertension Yes Myocardial Infarction Yes: stentx1 Valvular Heart Disease Yes: mild MVP Other Cardiology Yes: Ablation of extra node 1996 Asthma No Bronchitis No Chronic Obstructive Pulmonary No Disease (COPD) Pneumonia No Pulmonary Edema No Pulmonary Embolism No Sleep Apnea No Tuberculosis No Other Respiratory No Gastroesophageal Reflux Yes: well controlled with meds. Disease Ulcer Yes Other GI Yes: IBS Osteoarthritis No Other Musculoskeletal No Anesthesia Reactions Yes: PONV Depression No Uterine Prolapse Yes Clinic Medical History (Last Updated 05/13/17 @ 09:13 by Lc Howell MD) A-fib (Acute Medical) Asthma (Acute Medical) Cardiac abnormality (Acute Medical) GERD (gastroesophageal reflux disease) (Acute Medical) HTN (hypertension) (Acute Medical) Rheumatoid arthritis (Acute Medical) Stomach ulcer (Acute Medical) Thyroid disease (Acute Medical) <Derian Fagansein - 05/16/17 08:26> Patient Stated Medical History Cerebrovascular Accident No Paralysis No Seizures No Syncope No Cardiac Arrhythmia Yes Coronary Artery Disease Yes Hypertension Yes Myocardial Infarction Yes: stentx1 Valvular Heart Disease Yes: mild MVP Other Cardiology Yes: Ablation of extra node 1996 Asthma No Bronchitis No Chronic Obstructive Pulmonary No Disease (COPD) Pneumonia No Pulmonary Edema No Pulmonary Embolism No Sleep Apnea No Tuberculosis No Other Respiratory No Gastroesophageal Reflux Yes: well controlled with meds. Disease Ulcer Yes Other GI Yes: IBS Osteoarthritis No Other Musculoskeletal No Anesthesia Reactions Yes: PONV Depression No Uterine Prolapse Yes Clinic Medical History (Last Updated 05/05/17 @ 13:23 by Steff Torres) Asthma (Acute Medical) Rheumatoid arthritis (Acute Medical) Stomach ulcer (Acute Medical) GERD (gastroesophageal reflux disease) (Acute Medical) Thyroid disease (Acute Medical) HTN (hypertension) (Acute Medical) A-fib (Acute Medical) Cardiac abnormality (Acute Medical) <Natalie Rodriguez 05/12/17 10:48> Surgical History: Cholecystectomy, thyroidectomy <Natalie Rodriguez 05/12/17 10 :48> Family History: Family History (Last Reviewed 05/03/17 @ 14:06 by Lc Howell MD) Father Heart attack Lung cancer Mother Lung cancer <Ankur Fagan - 05/16/17 08:26> Family History (Last Reviewed 05/03/17 @ 14:06 by Lc Howell MD) Father Heart attack Lung cancer Mother Lung cancer <Natalie Rodriguez 05/12/17 10:48> - Social History Smoking status: Never smoker <Natalie Rodriguez 05/12/17 10:48> Substance use type: does not use <Natalie Rodriguez 05/12/17 10:48> Alcohol intake frequency: holidays/special occasions only <Natalie Rodriguez 10:48> Household members: spouse <Natalie Rodriguez 05/12/17 10:48> Medications Home Medications Medication Instructions Recorded Confirmed Type Levothyroxine Sodium [Synthroid] 125 mcg PO DAILY #0 05/19/11 05/11/17 History Sucralfate [Carafate] 1 g PO ACHS #0 tab 08/24/15 05/11/17 History Metoprolol Tartrate 25 mg PO BID #0 tab 10/27/15 05/11/17 History Rosuvastatin Calcium 1 tab PO HS #30 02/06/17 05/11/17 History Thyroid,Pork [[place] Thyroid] 1 tab PO DAILY #30 02/06/17 05/11/17 History Ticagrelor [Brilinta] 60 mg PO BID #0 tab 02/06/17 05/10/17 History Aspirin [Lo-Dose Aspirin EC] 1 tab PO HS 05/03/17 05/10/17 History Multivit-Min/FA/Lycopen/Lutein 1 each PO DAILY 05/03/17 05/11/17 History [Centrum Silver Tablet] Lisinopril [Prinivil] 5 mg PO DAILY 05/05/17 05/11/17 History Omeprazole [Prilosec] 1 cap PO DAILY 05/11/17 05/11/17 History <Ankur Fagan - 05/16/17 08:26> Allergies Allergy/AdvReac Type Severity Reaction Status Date / Time codeine AdvReac Unknown N/V Verified 05/11/17 08:40 Sulfa (Sulfonamide AdvReac Unknown N/V Verified 05/11/17 08:40 Antibiotics) hydrocodone bit AdvReac Unknown N/V Uncoded 05/11/17 08:40 <Ankur Fagan - 05/16/17 08:26> Exam Vital signs: Temperature 98.1 F 05/15/17 11:55 Pulse Rate 74 05/15/17 11:56 Respiratory Rate 16 05/15/17 11:55 Blood Pressure 140/84 H 05/15/17 11:56 Pulse Oximetry 96 05/15/17 11:56 Oxygen Delivery Method Room Air Oxygen Flow Rate 1 <Ankur Fagan - 05/16/17 08:26> Temp Pulse Resp BP Pulse Ox 97.7 F 67 21 121/56 95 05/12/17 04:00 05/12/17 07:00 05/12/17 07:00 05/12/17 07:00 05/12/17 07:00 <Natalie Rodriguez 05/12/17 10:48> - Constitutional no acute distress, well nourished, cooperative <Natalie Rodriguez 05/12/17 10: 48> - Routine HEENT Exam ENT: Present: mucous membranes moist <Natalie Rodriguez 05/12/17 10:48> - Routine Neck Exam Absent: JVD, carotid bruit <Natalie Rodriguez 05/12/17 10:48> - Routine Chest/Breast/Axilla Exam Chest wall: Absent: tenderness <Natalie Rodriguez 05/12/17 10:48> - Routine Respiratory Exam Present: CTA bilaterally. Absent: rales, wheezes <Natalie Rodriguez 05/12/17 10:48> - Routine Cardiovascular Exam Present: RRR, no murmur. Absent: JVD <Natalie Rodriguez 05/12/17 10:48> - Routine Abdominal Exam Present: soft, non tender <Natalie Rodriguez 05/12/17 10:48> - Routine Extremities Exam Present: edema (left trace) <Natalie Rodriguez 05/12/17 10:48> - Routine Skin Exam Present: intact <Natalie Rodriguez 05/12/17 10:48> - Routine Neurological Exam Present: alert, oriented X3 <Natalie Rodriguez 05/12/17 10:48> - Routine Psychiatric Exam Present: normal affect, normal thought process <Natalie Rodriguez 05/12/17 10: 48> Results 05/15/17 09:20 05/15/17 09:20 <Ankur Fagan - 05/16/17 08:26> CBC 05/15/17 Range/Units 09:20 WBC 9.6 (4.5-11.0) T/MM3 RBC 3.42 L (4.00-5.20) M/MM3 Hgb 9.9 L (12-16) GM/DL Hct 31.4 L (36-46) % Plt Count 277 D (130-400) T/MM3 Comprehensive Metabolic Panel 05/15/17 Range/Units 09:20 Sodium 143 (134-144) MEQ/L Potassium 3.3 L (3.6-5) MEQ/L Chloride 99 (98-107) MEQ/L Carbon Dioxide 32 H (22-30) MEQ/L BUN 8.0 (7-17) MG/DL Creatinine 0.5 L (0.7-1.2) MG/DL Glucose 115 H (65-110) MG/DL Calcium 7.7 L (8.4-10.2) MG/DL <Ankur Fagan - 05/16/17 08:26> Cardiac Enzymes 05/11/17 05/11/17 05/11/17 Range/Units 13:41 18:06 23:56 AST (14-36) U/L Troponin I < 0.012 < 0.012 < 0.012 (0-0.12) ng/ml 05/12/17 Range/Units 04:46 AST 36 (14-36) U/L Troponin I (0-0.12) ng/ml CBC 05/11/17 05/12/17 Range/Units 13:41 04:46 WBC 8.4 12.6 H D (4.5-11.0) T/MM3 RBC 3.83 L 3.39 L (4.00-5.20) M/MM3 Hgb 11.1 L 9.9 L (12-16) GM/DL Hct 35.6 L 31.4 L D (36-46) % Plt Count 239 216 (130-400) T/MM3 Neut # 7.1 9.7 H (1.8-7.7) T/MM3 Lymph # 1.2 2.0 (1-4.8) T/MM3 [place] # 0.1 0.9 H (0-0.8) T/MM3 Eos # 0.0 0.0 (0-0.5) T/MM3 Baso # 0.0 0.0 (0-0.2) T/MM3 Comprehensive Metabolic Panel 05/11/17 05/12/17 Range/Units 13:41 04:46 Sodium 145 H 145 H (134-144) MEQ/L Potassium 3.9 3.9 (3.6-5) MEQ/L Chloride 109 H 108 H (98-107) MEQ/L Carbon Dioxide 26 28 (22-30) MEQ/L BUN 18.0 H 12.0 (7-17) MG/DL Creatinine 0.6 L 0.5 L (0.7-1.2) MG/DL Glucose 131 H 97 (65-110) MG/DL Calcium 8.2 L 7.7 L (8.4-10.2) MG/DL AST 36 (14-36) U/L ALT 41 (9-52) U/L Alkaline Phosphatase 57 (38-126) U/L Total Protein 5.5 L (6.3-8.2) G/DL Albumin 3.3 L (3.5-5.0) G/DL Intake and Output 05/11/17 05/12/17 05/12/17 22:59 06:59 14:59 Intake Total 905.333 / 905.333 684.000 / 684.000 Output Total 800 / 800 340 / 340 Balance 105.333 / 105.333 344.000 / 344.000 Intake: IV 665.333 / 665.333 684.000 / 684.000 Kefzol 2 G In Normal 100 / 100 100 / 100 Saline 100 ml @ 200 mls/ hr IV Q8H SWAPNIL Rx#: [id number] Normal Saline 1,000 ml @ 565.333 / 565.333 584.000 / 584.000 80 mls/hr IV .[id number] SWAPNIL Rx#:[id number] Oral 240 / 240 Output: Urine 800 / 800 340 / 340 Laboratory Results - last 48 hr 05/11/17 05/11/17 05/11/17 13:41 13:41 14:31 WBC 8.4 RBC 3.83 L Hgb 11.1 L Hct 35.6 L MCV 93.0 MCH 29.0 MCHC 31.2 RDW Std Deviation 45.5 Plt Count 239 MPV 10.6 Immature Gran % (Auto) 0.4 Neut % (Auto) 84.7 H Lymph % (Auto) 13.8 L [place] % (Auto) 0.8 Eos % (Auto) 0.1 Baso % (Auto) 0.2 Neut # 7.1 Lymph # 1.2 [place] # 0.1 Eos # 0.0 Baso # 0.0 Abs Immat Gran (auto) 0.03 D-Dimer 6440 H Turbidity < 20 Sodium 145 H Potassium 3.9 Chloride 109 H Carbon Dioxide 26 Anion Gap 10 BUN 18.0 H Creatinine 0.6 L GFR Calculation 100 BUN/Creatinine Ratio 30 H Glucose 131 H Calculated Osmolality 283 H Calcium 8.2 L Magnesium Total Bilirubin Icterus Index < 2 AST ALT Alkaline Phosphatase Troponin I < 0.012 Total Protein Albumin Globulin Albumin/Globulin Ratio Specimen Hemolysis 21 05/11/17 05/11/17 05/12/17 18:06 23:56 04:46 WBC 12.6 H D RBC 3.39 L Hgb 9.9 L Hct 31.4 L D MCV 92.6 MCH 29.2 MCHC 31.5 RDW Std Deviation 44.8 Plt Count 216 MPV 10.5 Immature Gran % (Auto) 0.1 Neut % (Auto) 76.9 H Lymph % (Auto) 15.6 L [place] % (Auto) 7.1 Eos % (Auto) 0.1 Baso % (Auto) 0.2 Neut # 9.7 H Lymph # 2.0 [place] # 0.9 H Eos # 0.0 Baso # 0.0 Abs Immat Gran (auto) 0.01 D-Dimer Turbidity Sodium Potassium Chloride Carbon Dioxide Anion Gap BUN Creatinine GFR Calculation BUN/Creatinine Ratio Glucose Calculated Osmolality Calcium Magnesium Total Bilirubin Icterus Index AST ALT Alkaline Phosphatase Troponin I < 0.012 < 0.012 Total Protein Albumin Globulin Albumin/Globulin Ratio Specimen Hemolysis < 15 27 H 05/12/17 04:46 WBC RBC Hgb Hct MCV MCH MCHC RDW Std Deviation Plt Count MPV Immature Gran % (Auto) Neut % (Auto) Lymph % (Auto) [place] % (Auto) Eos % (Auto) Baso % (Auto) Neut # Lymph # [place] # Eos # Baso # Abs Immat Gran (auto) D-Dimer Turbidity < 20 Sodium 145 H Potassium 3.9 Chloride 108 H Carbon Dioxide 28 Anion Gap 9 BUN 12.0 Creatinine 0.5 L GFR Calculation 123 BUN/Creatinine Ratio 24 Glucose 97 Calculated Osmolality 279 Calcium 7.7 L Magnesium 2.1 Total Bilirubin 0.30 Icterus Index < 2 AST 36 ALT 41 Alkaline Phosphatase 57 Troponin I Total Protein 5.5 L Albumin 3.3 L Globulin 2.2 L Albumin/Globulin Ratio 1.5 Specimen Hemolysis < 15 <Natalie Rodriguez - 05/12/17 10:48> - Imaging and Cardiology Echo: pending <Natalie Rodriguez - 05/12/17 10:48> Imaging & Cardiology Narrative: Date of Exam: 06/22/17 Ordering Provider: Bang Magana MD Type of Exam(s): CT angio pulm emboli Reason for Exam(s): R/O PE episode of hypotension and chest pain after surgery Indication: R/O PE episode of hypotension and chest pain after surgery PROCEDURE: CT angio pulm emboli: Encounter: Initial Comparison: Chest x-ray dated April 26, 2017 Technique: Axial CT pulmonary angiographic phase images were performed through the chest after the administration of intravenous contrast. Coronal and Sagittal MIP reconstructed images were created and reviewed. Automated Exposure Control and Iterative Reconstruction dose reducing techniques were utilized. Contrast: Omnipaque 350 60 mL Findings: Pulmonary arteries: Exam is diagnostic to the subsegmental pulmonary arterial level. No filling defects identified to suggest a pulmonary embolus. Other findings: No pneumothorax. Mild right lower lobe atelectasis. Trace left basilar atelectasis. No pleural effusion. The central airways are patent. No worrisome pulmonary nodules or masses. No axillary or mediastinal adenopathy. Heart size is normal. No pericardial effusion. The upper abdomen shows no acute findings. Bone windows are unremarkable for age. Impression: 1. No pulmonary embolus. 2. Small areas of bibasilar atelectasis. <Natalie Rodriguez - 05/12/17 10:48> EKG interpretations - EKG EKG shows: sinus rhythm <Natalie Rodriguez - 05/12/17 10:48> - Blocks, axis, hypertrophy, ST abn Repolarization changes or abnormalities: nonspecific abnormality, ST segment, and/or T wave <Natalie Rodriguez - 05/12/17 10:48> Assessment and Plan (1) HTN (hypertension) Status: Acute (2) Syncope, near Problem details: hypotension, bradycardia, diaphoresis and chest pain shortly after her surgery. Status: Acute (3) Status post total left knee replacement Status: Acute (4) CAD (coronary atherosclerotic disease) Status: Chronic (5) Essential (primary) hypertension Status: Chronic (6) Mixed hyperlipidemia Status: Chronic <Ankur Fagan - 05/16/17 08:26> (1) Syncope, near Start date: 05/11/17 Problem details: hypotension, bradycardia, diaphoresis and chest pain shortly after her surgery. Status: Acute Likely vasovagal response post-op. Continue Metoprolol 25mg po BID Repeat Echo. Troponin negative X3 and EKG with NSSTT changes (2) Status post total left knee replacement Status: Acute (3) CAD (coronary atherosclerotic disease) Status: Chronic Last HC was 10/2015 with stent to LAD, Circ and RCA were patent. Stress test 04/21 EF 62% and was normal. (4) Essential (primary) hypertension Status: Chronic Started on Lisinopril 05/03/17 for sub-optimal BP control. Not taken by patient due to not picking up the prescription until just before surgery. Patient attributes HTN to increased pre-op knee pain. (5) HTN (hypertension) Status: Acute (6) Mixed hyperlipidemia Status: Chronic Takes Crestor, continue current therapy <Natalie Rodriguez - 05/12/17 17:19> Hospital Course Summary Disclaimer: Recommendation After examining the patient I agree with the above assessment. I am involved in the formulation of the patient's plan of care. <Ankur Fagan - 05/16/17 08:26> The visit summary below is not to be considered part of the above Progress Note. <Natalie Rodriguez - 05/12/17 10:48> Sepsis Assessment - Evaluation Sepsis screening result: No Definite Risk <Natalie Rodriguez - 05/12/17 10:48>
[2017-05-12] MEDS: BUMETANIDE 1 MG TABLET PO SCH ×2 (10:05→15:47)
[2017-05-12] MEDS: OMEPRAZOLE 20 MG CAPSULE PO SCH (10:15)
[2017-05-12] MEDS ORDERED: SENNOSIDES 8.6 MG TABLET PO PRN (12:30)
[2017-05-12] MEDS: LISINOPRIL 5 MG TABLET PO SCH (12:35)
[2017-05-12] MEDS ORDERED: Pharmacy Consult for Fall Risk XX PRN (20:35)
[2017-05-12] MEDS: ASPIRIN *EC* 81 MG TABLET PO SCH (21:22)
[2017-05-12] MEDS: ROSUVASTATIN 20 MG TABLET PO SCH (21:22)
[2017-05-12] MEDS: SENNOSIDES 8.6 MG TABLET PO SCH (21:22)
[2017-05-13] MEDS: TRAMADOL 50 MG TABLET PO PRN ×5 (01:28→21:03)
[2017-05-13] MEDS: KETOROLAC 30 MG/ML INJECTION IVP PRN (03:35)
[2017-05-13] MEDS: NS 1,000 ML IV SCH ×3 (05:25→19:49)
[2017-05-13] MEDS: SUCRALFATE 1 GM TABLET PO SCH ×4 (07:59→22:21)
[2017-05-13] MEDS: LEVOTHYROXINE 125 MCG TABLET PO SCH (07:59)
[2017-05-13] MEDS: NOZIN NASAL SWAB NAS SCH ×3 (09:02→21:03)
[2017-05-13] MEDS: DOCUSATE SODIUM 100 MG CAPSULE PO SCH ×2 (09:02→20:01)
[2017-05-13] MEDS: TICAGRELOR 60 MG TABLET PO SCH ×2 (09:03→20:00)
[2017-05-13] MEDS: BUMETANIDE 1 MG TABLET PO SCH ×2 (09:03→15:16)
[2017-05-13] MEDS: POLYETHYL GLYCOL 3350 17gm PACKET PO SCH (09:03)
[2017-05-13] MEDS: LISINOPRIL 5 MG TABLET PO SCH (09:04)
[2017-05-13] MEDS: OMEPRAZOLE 20 MG CAPSULE PO SCH (09:10)
[2017-05-13] MEDS: ACETAMINOPHEN 325 MG TABLET PO SCH ×4 (09:10→20:01)
--- NOTE | 2017-05-13 09:13 | Orthopedic Progress Note ---
Date: Subjective/Severity of Illness: No new complaints today no dizziness or lightheadedness Orthopedic Objective Vital signs: Temp Pulse Resp BP Pulse Ox 97.9 F 71 14 127/66 94 05/13/17 07:00 05/13/17 07:00 05/13/17 07:00 05/13/17 07:00 05/13/17 07:00 Height and Weight: Height 5 ft 3 in Weight 98.4 kg Body Mass Index 36.1 - Constitutional General Appearance: Present: alert, no acute distress - Respiratory Exam Present: non-labored (On a little oxygen this AM. ) - Cardiovascular Exam Capillary Refill: < 2-3 Seconds - Extremities Exam Present: edema. Absent: calf tenderness - Neurological Exam Present: no deficits - Wound Management Left Knee Primary Dressing: Mepilex - Labs Result Diagrams: 05/13/17 04:29 05/13/17 04:29 Abnormal lab results 05/13/17 05/13/17 Range/Units 04:29 04:29 RBC 3.04 L (4.00-5.20) M/MM3 Hgb 8.7 L D (12-16) GM/DL Hct 28.2 L (36-46) % MCHC 30.9 L (31-37) GM/DL Sodium 146 H (134-144) MEQ/L Chloride 112 H (98-107) MEQ/L Creatinine 0.5 L (0.7-1.2) MG/DL Calcium 7.7 L (8.4-10.2) MG/DL Specimen Hemolysis 40 H (0-25) H & H 05/11/17 05/12/17 05/13/17 Range/Units 13:41 04:46 04:29 Hgb 11.1 L 9.9 L 8.7 L D (12-16) GM/DL Hct 35.6 L 31.4 L D 28.2 L (36-46) % Orthopedic Assessment and Plan (1) Syncope, near Status: Acute Problem Details: hypotension, bradycardia, diaphoresis and chest pain shortly after her surgery. (2) Status post total left knee replacement Status: Acute Assessment and Plan: Work with PT today for mobilization. She has not yet done stairs. Continue to monitor hemoglobin. Continue with current pain management. (3) CAD (coronary atherosclerotic disease) Status: Chronic (4) Essential (primary) hypertension Status: Chronic (5) Mixed hyperlipidemia Status: Chronic (6) HTN (hypertension) Status: Acute Hospital Course Summary Disclaimer: The visit summary below is not to be considered part of the above Progress Note.
--- NOTE | 2017-05-13 09:53 | Progress Note ---
Subjective: Pt states she is feeling a bit better. Post op rehab has been limited by pt being dizzy. Spoke with Dr Howell, he will keep pt at least till tomorrow. Pt denies any new CP/SOB. She looks pale. Objective Vital signs: Temp Pulse Resp BP Pulse Ox 97.9 F 71 14 127/66 94 05/13/17 07:00 05/13/17 07:00 05/13/17 07:00 05/13/17 07:00 05/13/17 07:00 Rhythm: Normal Sinus Rhythm Weight: 98.4 kg - Constitutional Present: no acute distress, well nourished, cooperative - Routine HEENT Exam Head: Present: normocephalic, atraumatic Eye: Present: EOMI, PERRL - Routine Cardiovascular Exam Present: RRR - Routine Abdominal Exam Present: soft, non distended, non tender - Routine Extremities Exam Absent: cyanosis, clubbing, edema - Routine Neurological Exam Present: alert, oriented X3 - Routine Psychiatric Exam Present: normal affect Results - Labs CBC & Chem 7: 05/13/17 04:29 05/13/17 04:29 Assessment and Plan Assessment and Plan: This is a 66YO female that is S/P total knee replacement by staff orthopedic surgeon (Dr Howell) on 05/11, that had an episode of SOB, hypotension and CP and near syncope - after surgery and was then admitted for close observation. Serial troponins did not show any TN, EKG did not suggest ischemia either. CTA chest did not show a PE. Yesterday she had another near syncopal episode while trying to have rehab at the ICU. She has a drop in her hemoglobin that seems excessive for the loss during surgery. 1) S/P Total knee replacement (05/11) by Dr Howell. - Pt developed episode of CP, SOB and hypotension after surgery - could be vasovagal episode since pt describes similar episodes in the past, particularly related to surgical procedures. Pt had another episode this AM when PT was trying to ambulate her. This could be a vasovagal episode. - Initial EKG showed no ST elevation, depression or Q waves. - TnI is negative x 3. CTA negative for PE. (D-Dimer elevation probably due to surgery and/or tranexamic acid) - Will reduce Metoprolol dose from 25 mg POBID to 12.5 mg PO BID starting this PM - Continue observation at the ICU, may benefit from Cardiology input. 2) Anemia hemoglobin was 11.1 (05/11) then dropped to 9.9 (05/12) with a further drop to 8.7 (05/13) - Drop seems excessive for surgical intervention - Sample shows hemolysis twice - will check Haptoglobin level, PT/INR, PTT - pt is on Brilinta so she could have an occult bleed. - Will consider CT abd/pelvis no contrast if Haptoglobin is normal ( if pt is having hemolysis). 3) Hypothyroidism - S/P thyroidectomy (? graves ?) - Home meds list Levothyroxine and [place] thyroid, but pt is only on [place] thyroid at this time. 4) Pt had a cardiac cath during the last year and was not found to have significant disease. - Resume Ticagrelor * - Close observation in the ICU. Sepsis Assessment - Evaluation Sepsis screening result: No Definite Risk Hospital Course Summary Disclaimer: The visit summary below is not to be considered part of the above Progress Note. 05/11 to 05/13 - This is a 66YO female that is S/P total knee replacement by staff orthopedic surgeon (Dr Howell) on 05/11, that had an episode of SOB, hypotension and CP and near syncope - after surgery and was then admitted for close observation. Serial troponins did not show any TN, EKG did not suggest ischemia either. CTA chest did not show a PE. Yesterday she had another near syncopal episode while trying to have rehab at the ICU. Cardiology thinks this is vasovagal. She has a drop in her hemoglobin that seems excessive for the loss during surgery. Workup in progress.
[2017-05-13] MEDS ORDERED: BISACODYL 10 MG SUPPOSITORY RECTALLY SCH (20:00)
[2017-05-13] MEDS: ASPIRIN *EC* 81 MG TABLET PO SCH (21:02)
[2017-05-13] MEDS: ROSUVASTATIN 20 MG TABLET PO SCH (21:02)
[2017-05-13] MEDS: SENNOSIDES 8.6 MG TABLET PO SCH (21:02)
[2017-05-13] MEDS: LORazepam 1 MG TABLET PO PRN (21:20)
[2017-05-14] MEDS: TRAMADOL 50 MG TABLET PO PRN ×4 (01:58→21:26)
[2017-05-14] MEDS: SUCRALFATE 1 GM TABLET PO SCH ×4 (06:21→21:27)
[2017-05-14] MEDS: NS 1,000 ML IV SCH (06:21)
[2017-05-14] MEDS: LEVOTHYROXINE 125 MCG TABLET PO SCH (06:21)
[2017-05-14] MEDS: NOZIN NASAL SWAB NAS SCH ×3 (06:21→21:26)
--- NOTE | 2017-05-14 08:05 | Orthopedic Progress Note ---
Date: Subjective/Severity of Illness: Pita is doing well physical therapy. Her pain is controlled with Tylenol and tramadol. She was experiencing some lightheadedness and dizziness this morning after a walk to the bathroom right before my visit. She has not been expanding this previously. Orthopedic Objective Vital signs: Temp Pulse Resp BP Pulse Ox 98.1 F 77 16 157/74 H 96 05/14/17 07:26 05/14/17 07:26 05/14/17 07:26 05/14/17 07:26 05/14/17 07:26 Height and Weight: Height 5 ft 3 in Weight 97.5 kg Body Mass Index 36.1 - Constitutional General Appearance: Present: alert, no acute distress - Respiratory Exam Present: non-labored (On a little oxygen this AM. ) - Cardiovascular Exam Capillary Refill: < 2-3 Seconds - Extremities Exam Absent: cyanosis, clubbing, edema - Neurological Exam Present: no deficits - Wound Management Left Knee Primary Dressing: Mepilex - Labs Result Diagrams: 05/14/17 04:24 05/14/17 04:24 Abnormal lab results 05/13/17 05/13/17 05/14/17 Range/Units 10:05 15:45 04:24 RBC 3.09 L (4.00-5.20) M/MM3 Hgb 9.3 L 9.0 L (12-16) GM/DL Hct 28.7 L (36-46) % Haptoglobin 207 H (36-195) mg/dL Potassium (3.6-5) MEQ/L Carbon Dioxide (22-30) MEQ/L BUN (7-17) MG/DL Creatinine (0.7-1.2) MG/DL Calcium (8.4-10.2) MG/DL 05/14/17 Range/Units 04:24 RBC (4.00-5.20) M/MM3 Hgb (12-16) GM/DL Hct (36-46) % Haptoglobin (36-195) mg/dL Potassium 3.5 L D (3.6-5) MEQ/L Carbon Dioxide 35 H D (22-30) MEQ/L BUN 6.0 L (7-17) MG/DL Creatinine 0.5 L (0.7-1.2) MG/DL Calcium 7.4 L (8.4-10.2) MG/DL H & H 05/11/17 05/12/17 05/13/17 Range/Units 13:41 04:46 04:29 Hgb 11.1 L 9.9 L 8.7 L D (12-16) GM/DL Hct 35.6 L 31.4 L D 28.2 L (36-46) % 05/13/17 05/14/17 Range/Units 15:45 04:24 Hgb 9.3 L 9.0 L (12-16) GM/DL Hct 28.7 L (36-46) % Coagulation 05/13/17 Range/Units 10:05 INR 1.11 (0.99-1.21) Orthopedic Assessment and Plan (1) Status post total left knee replacement Status: Acute Assessment and Plan: Mrs. Devries hemoglobin is stabilized. She is doing well from a physical therapy standpoint. She has new onset nausea and dizziness this morning. Vitals are stable. If she is feeling better this afternoon she possibly could be discharged home. Hospital Course Summary Disclaimer: The visit summary below is not to be considered part of the above Progress Note.
[2017-05-14] MEDS: ACETAMINOPHEN 325 MG TABLET PO SCH ×4 (09:20→21:27)
[2017-05-14] MEDS: BUMETANIDE 1 MG TABLET PO SCH ×2 (09:21→15:32)
[2017-05-14] MEDS: TICAGRELOR 60 MG TABLET PO SCH ×2 (09:22→21:27)
[2017-05-14] MEDS: POLYETHYL GLYCOL 3350 17gm PACKET PO SCH (09:22)
[2017-05-14] MEDS: OMEPRAZOLE 20 MG CAPSULE PO SCH (09:22)
[2017-05-14] MEDS: DOCUSATE SODIUM 100 MG CAPSULE PO SCH ×2 (09:22→21:27)
[2017-05-14] MEDS: LISINOPRIL 5 MG TABLET PO SCH (09:23)
--- NOTE | 2017-05-14 11:21 | Echocardiogram ---
DATE OF PROCEDURE May 12, 2017 This is a two-dimensional echo with spectral Doppler, color-flow and M-mode. It was obtained in a patient with presyncope. Left atrial dimension is normal. Left ventricular end-diastolic dimension is normal. Left ventricular wall thickness is normal. LV systolic function is normal with ejection fraction of about 65%. Right atrium is normal. Right ventricle is normal. Aortic root dimension is normal. Mitral valve is morphologically normal with trace of mitral regurgitation. Aortic valve is a trileaflet structure with no stenosis or insufficiency. Tricuspid valve shows mild tricuspid regurgitation with moderate pulmonary hypertension with estimated pulmonary artery systolic pressure of 45. Pulmonary valve shows no pulmonary insufficiency. There is no pericardial effusion. IMPRESSION 1. Normal LV systolic function with ejection fraction of 65%. 2. Trace of mitral regurgitation. 3. Mild tricuspid regurgitation with moderate pulmonary hypertension with estimated pulmonary artery systolic pressure of 45. 4. Trace of pulmonary insufficiency. MTDD
--- NOTE | 2017-05-14 17:41 | Progress Note ---
Subjective: Pt states she is feeling much better today. She is able to walk with a walker and is not as dizzy. Objective Vital signs: Temp Pulse Resp BP Pulse Ox 98.1 F 73 14 146/79 H 97 05/14/17 15:59 05/14/17 16:57 05/14/17 11:00 05/14/17 16:57 05/14/17 15:59 Rhythm: Normal Sinus Rhythm Weight: 97.5 kg - Constitutional Present: no acute distress, well nourished, cooperative - Routine HEENT Exam Head: Present: normocephalic, atraumatic Eye: Present: EOMI, PERRL - Routine Cardiovascular Exam Present: RRR, no murmur - Routine Abdominal Exam Present: soft, non distended, non tender - Routine Extremities Exam Absent: cyanosis, clubbing, edema - Routine Musculoskeletal Exam Musculoskeletal: no clubbing or cyanosis - Routine Skin Exam Present: intact - Routine Neurological Exam Present: alert, oriented X3, CN II-XII intact - Routine Psychiatric Exam Present: normal affect, good insight, good judgment Results - Labs CBC & Chem 7: 05/14/17 04:24 05/14/17 04:24 Assessment and Plan Assessment and Plan: This is a 66YO female that is S/P total knee replacement by staff orthopedic surgeon (Dr Howell) on 05/11, had an episode of SOB, hypotension and CP and near syncope immeidately after surgery. A SALES AMBASSADOR was called and she was then admitted for close observation to the ICU. Serial troponins did not show any SD, EKG did not suggest ischemia either. CTA chest did not show a PE. On 05/12 she had another near syncopal episode while trying to have rehab at the ICU. She has a drop in her hemoglobin that seems excessive for the loss during surgery, but the hemoglobin seems to have stabilized now. Pt has occasional blood in the stools due to hemorrhoids. DIAGNOSIS - 1) S/P Total knee replacement (05/11) by Dr Howell. Doing very well. - Pt developed episode of CP, SOB and hypotension after surgery - could be vasovagal episode since pt describes similar episodes in the past, particularly related to surgical procedures. Pt had another episode this AM when PT was trying to ambulate her. This could be a vasovagal episode. - Initial EKG showed no ST elevation, depression or Q waves. - TnI is negative x 3. CTA negative for PE. (D-Dimer elevation probably due to surgery and/or tranexamic acid) - 2-D echo report "............................ IMPRESSION 1. Normal LV systolic function with ejection fraction of 65%. 2. Trace of mitral regurgitation. 3. Mild tricuspid regurgitation with moderate pulmonary hypertension with estimated pulmonary artery systolic pressure of 45. 4. Trace of pulmonary insufficiency. .........................................................." 2) Anemia hemoglobin was 11.1 (05/11) then dropped to 9.9 (05/12) with a further drop to 8.7 (05/13), now stabilized at 9.0 - No hemolysis (No drop in haptoglobin) 3) Hypothyroidism - S/P thyroidectomy (? graves ?) - Home meds list Levothyroxine and [place] thyroid, but pt is only on [place] thyroid at this time. 4) Pt had a cardiac cath during the last year and was not found to have significant disease. - Resume Ticagrelor * - Close observation in the ICU. 5) Pt had a colonoscopy last year - only finding was hemorroids Anticipate pt being D/C home in the AM. Per cardiology notes, pt should go home on Metoprolol and Lisinopril. Sepsis Assessment - Evaluation Sepsis screening result: No Definite Risk Hospital Course Summary Disclaimer: The visit summary below is not to be considered part of the above Progress Note.
[2017-05-14] MEDS: SENNOSIDES 8.6 MG TABLET PO SCH (21:26)
[2017-05-14] MEDS: ROSUVASTATIN 20 MG TABLET PO SCH (21:27)
[2017-05-14] MEDS: ASPIRIN *EC* 81 MG TABLET PO SCH (21:28)
[2017-05-15] MEDS: TRAMADOL 50 MG TABLET PO PRN ×2 (03:46→10:31)
[2017-05-15] MEDS: NOZIN NASAL SWAB NAS SCH (05:54)
[2017-05-15] MEDS: SUCRALFATE 1 GM TABLET PO SCH ×2 (05:54→12:16)
[2017-05-15] MEDS: LEVOTHYROXINE 125 MCG TABLET PO SCH (05:54)
--- NOTE | 2017-05-15 09:03 | Orthopedic Progress Note ---
Date: Subjective/Severity of Illness: Pita is feeling good this AM. She denies and dizziness or lightheadedness with standing. She denies chest pain or shortness of breath. No new labs are available today, CBC and BMP were ordered. She is ready to go home. Orthopedic Objective Vital signs: Temp Pulse Resp BP Pulse Ox 98.0 F 71 16 165/80 H 97 05/15/17 07:23 05/15/17 07:23 05/15/17 07:23 05/15/17 07:23 05/15/17 07:23 Height and Weight: Height 5 ft 3 in Weight 210 lb 15.718 oz Body Mass Index 36.1 - Constitutional General Appearance: Present: alert, orientated x3, no acute distress - Respiratory Exam Present: non-labored (On a little oxygen this AM. ) - Cardiovascular Exam Capillary Refill: < 2-3 Seconds - Abdominal Exam Present: soft - Extremities Exam Absent: cyanosis, clubbing, edema - Integumentary Exam Present: pink, warm, dry - Lymphatic Lymphatic: Absent: lymphedema - Neurological Exam Present: no deficits - Psychiatric Exam Present: alert - Wound Management Left Knee Primary Dressing: Mepilex - Labs Result Diagrams: 05/14/17 04:24 05/14/17 04:24 Abnormal lab results 05/14/17 Range/Units 04:24 Iron 27 L (37-170) UG/DL TIBC 235 L (261-497) UG/DL H & H 05/11/17 05/12/17 05/13/17 Range/Units 13:41 04:46 04:29 Hgb 11.1 L 9.9 L 8.7 L D (12-16) GM/DL Hct 35.6 L 31.4 L D 28.2 L (36-46) % 05/13/17 05/14/17 Range/Units 15:45 04:24 Hgb 9.3 L 9.0 L (12-16) GM/DL Hct 28.7 L (36-46) % Coagulation 05/13/17 Range/Units 10:05 INR 1.11 (0.99-1.21) Orthopedic Assessment and Plan (1) Status post total left knee replacement Status: Acute Assessment and Plan: doing well. anticipate discharge around noon CBC and BMP are ordered to reassess hemoglobin and K Hospital Course Summary Disclaimer: The visit summary below is not to be considered part of the above Progress Note.
[2017-05-15] MEDS: TICAGRELOR 60 MG TABLET PO SCH (09:39)
[2017-05-15] MEDS: LISINOPRIL 5 MG TABLET PO SCH (09:40)
[2017-05-15] MEDS: POLYETHYL GLYCOL 3350 17gm PACKET PO SCH (09:40)
[2017-05-15] MEDS: DOCUSATE SODIUM 100 MG CAPSULE PO SCH (09:40)
[2017-05-15] MEDS: ACETAMINOPHEN 325 MG TABLET PO SCH ×2 (09:40→14:08)
[2017-05-15] MEDS: OMEPRAZOLE 20 MG CAPSULE PO SCH (09:40)
[2017-05-15] MEDS: BUMETANIDE 1 MG TABLET PO SCH (10:00)
--- NOTE | 2017-05-15 12:22 | Discharge Summary ---
Orthopedic Discharge Info Date of admission: 05/11/17 08:12 Primary care physician: Robbi Caballero II, MD Attending Physician: Lc Howell MD Consults: 05/11/17 08:02 Consult to Anesthesiology [CONS] Routine Consulting Provider: SHAYY Baig Reason For Exam: Preoperative Assessment 05/11/17 13:42 Physician Consult [CONS] Routine Consulting Provider: Bang Magana Reason For Exam: rapid response Ordering Provider has Notified Wholesale Manager: Yes 05/11/17 14:13 Case Management Consult [CONS] Routine Reason For Exam: Discharge Planning DME-Walker [CONS] Routine Height: 5 ft 3 in Weight: 204 lb 2.369 oz Comment: change dressing in 2 weeks Total Joint Outpatient Therapy [CONS] Routine Comment: change dressing in 2 weeks 05/12/17 09:28 Physician Consult [CONS] Routine Consulting Provider: Ankur Fagan Reason For Exam: near syncope after surgery and today at rehab Ordering Provider has Notified Wholesale Manager: No Comment: Please notify MD prior to 2pm today - Discharge Diagnosis (1) Status post total left knee replacement Status: Acute - Procedures Procedures: TKA - Laboratory Result Diagrams: 05/15/17 09:20 05/15/17 09:20 Laboratory: Abnormal lab results 05/14/17 05/15/17 05/15/17 Range/Units 04:24 09:20 09:20 RBC 3.42 L (4.00-5.20) M/MM3 Hgb 9.9 L (12-16) GM/DL Hct 31.4 L (36-46) % Potassium 3.3 L (3.6-5) MEQ/L Carbon Dioxide 32 H (22-30) MEQ/L Creatinine 0.5 L (0.7-1.2) MG/DL Glucose 115 H (65-110) MG/DL Calcium 7.7 L (8.4-10.2) MG/DL Iron 27 L (37-170) UG/DL TIBC 235 L (261-497) UG/DL H & H 05/11/17 05/12/17 05/13/17 Range/Units 13:41 04:46 04:29 Hgb 11.1 L 9.9 L 8.7 L D (12-16) GM/DL Hct 35.6 L 31.4 L D 28.2 L (36-46) % 05/13/17 05/14/17 05/15/17 Range/Units 15:45 04:24 09:20 Hgb 9.3 L 9.0 L 9.9 L (12-16) GM/DL Hct 28.7 L 31.4 L (36-46) % Coagulation 05/13/17 Range/Units 10:05 INR 1.11 (0.99-1.21) Orthopedic Discharge HPI - HPI Comments This patient was admitted for elective surgical tx of end stage degenerative joint disease that failed to respond to conservative treatment. Further details of this is found in the admission H&P. Orthopedic Hospital Course Hospital course: 05/15/17 12:19 After appropriate preoperative clearance and signing of operative consent, the patient was given IV antibiotics, according to orthopedic protocol. The patient was taken to the operating room and underwent elective joint arthroplasty. Following surgery, antibiotics were discontinued less than 24 hours according to joint protocol. Appropriate anticoagulants were initiated and SCDs added for DVT prevention. The dressing was clean, dry, and intact. Pain control was obtained via multimodal approach. Bowel motivation addressed with scheduled and PRN medications. Early mobilization was initiated through PT services. Discharge arrangements made by a collaborative effort between the patient and Case Management. Following her TKA, a rapid response was called for an episode of hypotension, bradycardia, diaphoresis and chest pain shortly after her surgery. Hospitalist and Cardiology were consulted. Tropoinins were negative, CTA was negative, Echo was completed. She was allowed to mobilize and symptoms resolved slowly. Please see notes for further specifics. Follow-up is scheduled in 2-3 weeks. Discharge instructions given by orthopedic providers and nursing staff at discharge. Discharge condition was good. 05/15/17 12:22 - Postoperative Anemia patient received IVF, labs monitored daily, no intervention required, HGB drop- acceptable - Other Postoperative Events see hospital course above Discharge Plan - Med Rec/Dispo Referrals/Follow Up: Lc Howell MD [Physician] - 3 Weeks (as scheduled) Robbi Caballero II, MD [Family Provider] - (within the week for further follow up on low potassium.) Additional Instructions: [facility] ON 05/16/2017 AT 11:00AM FOR PHYSICAL THERAPY EVAL. PLEASE COMPLETE THE PAPERWORK IN [facility] PRIOR TO THE APPOINTMENT. PHONE [phone] Prescriptions: New Tramadol [Ultram] 50 - 100 mg PO Q6H PRN #60 PRN Reason: Pain Acetaminophen [Tylenol] 650 mg PO QID PEG 3350 17gm PACKET [Miralax] 17 gm PO DAILY packet Continue Levothyroxine Sodium [Synthroid] 125 mcg PO DAILY #0 Rosuvastatin Calcium 1 tab PO HS #30 Aspirin [Lo-Dose Aspirin EC] 1 tab PO HS Multivit-Min/FA/Lycopen/Lutein [Centrum Silver Tablet] 1 each PO DAILY Lisinopril [Prinivil] 5 mg PO DAILY Sucralfate [Carafate] 1 g PO ACHS #0 tab Metoprolol Tartrate 25 mg PO BID #0 tab Ticagrelor [Brilinta] 60 mg PO BID #0 tab Thyroid,Pork [[place] Thyroid] 1 tab PO DAILY #30 Omeprazole [Prilosec] 1 cap PO DAILY Discontinued Bumetanide 1 mg PO BID #0 - Disposition 01 Discharged Home, Self-Care
== END 2017-05-15 14:10 | disposition home or self-care (01) | DRG 470 ==
LOC: SRG 08:12 → CCU 13:50 → SRG 05-12 19:55
PROVIDERS: ADMIT Orthopaedic Surgery; ATTEND Orthopaedic Surgery